=== PATIENT | male | born 1985 ===

== ENCOUNTER 2017-09-19 01:18 | Emergency (ER) | payer OTHER ==
[2017-09-19] MEDS ORDERED: Lidocaine 1% 20 ML MDV ONE (01:35)
[2017-09-19] MEDS ORDERED: Adacel (T-DAP) 0.5 ML VIAL ONE (01:38)
--- NOTE | 2017-09-19 07:36 | RAD ---
LEFT FOOT 3 VIEWS: Date: 09/19/17 FINDINGS: No fracture, dislocation, or opaque foreign body seen. The bones and joints show no acute change. IMPRESSION: No acute findings. POS: HOME
== END 2017-09-19 02:24 | disposition home or self-care (01) ==
LOC: BURERS 01:18
DX: S91.332A Puncture wound without foreign body, left foot, initial encounter (principal); F17.200 Nicotine dependence, unspecified, uncomplicated; W45.0XXA Nail entering through skin, initial encounter; Y99.0 Civilian activity done for income or pay
CPT/HCPCS: 90471; 90715; J2001